=== PATIENT | male | born 1955 | race American Indian/Alaskan Native ===

== ENCOUNTER 2018-04-12 13:51 | Inpatient (IN) | payer BC, MEDICARE ==
[2018-04-12 13:58] VITALS: BMI 32.1
[2018-04-12] MEDS ORDERED: Sodium Chloride 0.9% 1,000 ML IV STA (14:28)
--- NOTE | 2018-04-12 14:33 | ED PDOC ---
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 04/12/18 14:35 Time/Duration: 1-3 hours Symptom Onset: Gradual Symptom Course: Improving Quality: Other (no pain) Activities at Onset: Other (walking) Context: Standing Past Medical History - Provider Review Nursing Documentation Reviewed: Yes - Travel History Have you recently traveled outside [place] w/in the past 3 mons?: No - Infectious Disease Hx of Infectious Diseases: None - Tetanus Immunization Tetanus Immunization: Unknown - Reproductive Currently Lactating: No - Cardiac Hx Cardiac Disorders: Yes Hx Hypertension: Yes - Neurological Hx Neurological Disorder: Yes Other/Comment: Nixon [place] Syndrome MAY 2013 POOR BALANCE PERIPHERAL NEUROPATHY - Endocrine/Metabolic Hx Endocrine Disorders: No - Hematological/Oncological Hx Blood Disorders: Yes Hx Anemia: Yes Hx Blood Transfusions: Yes Hx Blood Transfusion Reaction: No Hx Unexplained Bleeding: No - Integumentary Hx Dermatological Disorder: No Hx Melanoma: No - Genitourinary/Gynecological Hx Genitourinary Disorders: Yes Hx Prostate Problems: Yes Hx Urinary Tract Infection: Yes - Psychiatric Hx Psychophysiologic Disorder: No Hx Substance Use: No - Surgical History Hx Cholecystectomy: Yes Hx Orthopedic Surgery: Yes (LEFT KNEE X 3) Other/Comment: PLASMAPHORESIS/ FOR NIXON BARRE SYNDROM - Anesthesia Hx Anesthesia: Yes Hx Anesthesia Reactions: No Hx Malignant Hyperthermia: No - Suicidal Assessment Feels Threatened In Home Enviroment: No Family/Social History - Physician Review Nursing Documentation Reviewed: Yes Family/Social History: No Known Family HX Smoking Status: Never Smoked Hx Alcohol Use: Yes (BEER A DAY) Hx Substance Use: No Hx Substance Use Treatment: No Allergies/Home Meds Allergies/Adverse Reactions: Allergies hydromorphone Allergy (Verified 07/14/16 10:55) ANAPHYLAXIS Home Medications: Home Meds Medication Instructions Recorded Confirmed Azilsartan Med/Chlorthalidone 1 tab PO DAILY 04/07/18 04/10/18 [Edarbyclor 40 mg-25 mg] Review of Systems - Review of Systems Constitutional: Normal Eyes: Normal ENT: Normal Respiratory: SOB Cardiovascular: Normal Gastrointestinal: Normal Genitourinary Male: Normal Musculoskeletal: Normal Skin: Normal Neurological: Normal Endocrine: Normal Hemo/Lymphatic: Normal Psychiatric: Normal Physical Exam Vital Signs Reviewed: Yes Vital Signs Temp Pulse Resp BP Pulse Ox 04/12/18 13:58 97.9 F 90 19 117/75 100 Temperature: Afebrile Blood Pressure: Normal Pulse: Regular Appearance: Positive for: Well-Appearing, Non-Toxic, Comfortable Pain Distress: None Mental Status: Positive for: Alert and Oriented X 3 Finger Stick Blood Glucose: 101 - Systems Exam Head: Present: Atraumatic, Normocephalic Pupils: Present: PERRL Extroacular Muscles: Present: EOMI Conjunctiva: Present: Normal Ears: Present: Normal Mouth: Present: Moist Mucous Membranes Pharnyx: Present: Normal Nose (External): Present: Atraumatic Nose (Internal): Present: Normal Inspection Neck: Present: Normal Range of Motion Respiratory/Chest: Present: Clear to Auscultation, Good Air Exchange Cardiovascular: Present: Regular Rate and Rhythm Abdomen: No: Tenderness, Distention, Normal Bowel Sounds, Peritoneal Signs, Rebound, Guarding, McBurney's Point Tender, Rovsing's Sign Present, Hernias, Feeding Tubes, Ostomy Tubes, Mass/Organomegaly, Scars, Other Back: Present: Normal Inspection Upper Extremity: Present: Normal Inspection Lower Extremity: Present: Normal Inspection Neurological: Present: GCS=15, CN II-XII Intact, Speech Normal, Motor Func Grossly Intact Skin: Present: Warm, Normal Color Psychiatric: Present: Alert, Oriented x 3, Normal Insight, Normal Concentration Medical Decision Making ED Course and Treatment: you were treated in the ED today for hx of nixon barre, pulmonary embolism in the past with filter placed, had recently prostate biopsy and had been resting at home and then got up to go outside the home and felt a bit lightheaded and as if you were going to pass out and secondarily had a very transient difficulty breathing but all of which has resolved but otherwise without any loss of consciousness/neck pain/head injury/nausea/vomiting/headache/dizziness/ chest pain/abdomen pain/numbness/tingling/loss of limb function/pain with urination. Secondarily you had some mild blood clots with urination right after your biopsy but which has all been clear. You were otherwise breathing easily, smiling and talking easily, good strength/sensation, walking easily, clear lungs , no abdomen tenderness, no spinal tenderness, no fever temp 97.9, stable heart rate 90, stable breathing rate 19, excellent oxygen level 100% room air, stable blood pressure 117/75 which we recommend repeat in 2-3 days primary care office to determine further treatment, you have blood tests no infection count 6, stable blood level hemoglobin 11/platelets 124, stable chemistry, creatinine elevated 3.0 from prior 1.0, heart blood test negative less than 0.01, low risk of blood clot elevated 1299, urine test large LE, radiology chest xray initial no acute findings, nuclear medicine scan pending, ECG normal sinus rhythm, normal saline hydration, observation done in the ED, counselled to stop driving till first clinic visit. Chest X-ray Reviewed by radiologist, shows: No active disease. d/w Dr. Luna regarding patient with near syncope/dizziness/lightheadedness , and acute change in renal function from prior 3.0 from 1.0 and secondarily hx of PE with having had transient sob thus d-dimer ordered with 1299 and thus nuclear medicine VQ scan ordered which Dr. Luna will followup, recommends Dr. Martin nephrology consult and admit to remote telemetry for ivf hydration and ceftriaxone for largue leukocytes on ua. 04/12/18 18:08 Reassessment Condition: Improving,but remains with symptoms - Lab Interpretations Lab Results: 04/12/18 14:45 04/12/18 15:15 Lab Results 04/12/18 16:36: Urine Color Light red, Urine Appearance Slight-cloudy, Urine pH 6.0, Ur Specific [place] 1.020, Urine Protein 30 H, Urine Glucose (UA) Negative , Urine Ketones Negative, Urine Blood Large H, Urine Nitrate Negative, Urine Bilirubin Negative, Urine Urobilinogen 0.2, Ur Leukocyte Esterase Large H, Urine RBC 25 - 30, Urine WBC 20 - 25, Ur Epithelial Cells 0 - 2, Urine Bacteria Small 04/12/18 15:15: Sodium 133, Potassium 5.1 H, Chloride 106, Carbon Dioxide 21, Anion Gap 11, BUN 50 H, Creatinine 3.0 H, Est GFR ( Amer) 26, Est GFR ( Non-Af Amer) 21, Random Glucose 83, Calcium 8.4, Magnesium 1.1 L, Total Bilirubin 0.4, AST 22, ALT 11, Alkaline Phosphatase 70, Lactate Dehydrogenase 413, Total Creatine Kinase 32 L, Troponin I < 0.01 D, Total Protein 7.0, Albumin 3.4, Globulin 3.6, Albumin/Globulin Ratio 0.9 L 04/12/18 14:45: PT 13.9 H, INR 1.21, APTT 26.7, D-Dimer, Quantitative 1299 H 04/12/18 14:45: WBC 6.0, RBC 3.58, Hgb 11.5 L, Hct 37.2 L, MCV 103.9, MCH 32.1, MCHC 30.9 L, RDW 13.1, Plt Count 124, MPV 9.6, Gran % 74.2 H, Lymph % (Auto) 15.3 L, [place] % (Auto) 8.5 H, Eos % (Auto) 1.8, Baso % (Auto) 0.2, Gran # 4.48, Lymph # (Auto) 0.9 L, [place] # (Auto) 0.5, Eos # (Auto) 0.1, Baso # (Auto) 0.01 04/12/18 14:10: POC Glucose (mg/dL) 101 I have reviewed the lab results: Yes - RAD Interpretation Radiology Orders: 04/12/18 14:27 CHEST PORTABLE [RAD] Stat 04/12/18 16:39 LUNG PERF & VENT SCAN [NM] Stat Gas Appliance Servicer: ED Physician (cxr right hemidiaphram no acute) - Medication Orders Current Medication Orders: Sodium Chloride (Sodium Chloride 0.9%) 1,000 mls @ 100 mls/hr IV .Q10H SUNITA Discontinued Medications Sodium Chloride (Sodium Chloride 0.9%) 1,000 mls @ 999 mls/hr IV .Q1H1M STA Stop: 04/12/18 15:28 Last Admin: 04/12/18 14:44 Dose: 999 mls/hr eMAR Start Stop Document 04/12/18 14:44 GMI (Rec: 04/12/18 14:45 [email or web address]) Intravenous Solution Start Date 04/12/18 Start Time 14:44 End Date 04/12/18 End time 15:50 Total Infusion Time 66 Disposition/Present on Arrival - Present on Arrival Any Indicators Present on Arrival: Yes History of DVT/PE: Yes History of Uncontrolled Diabetes: No Urinary Catheter: No History of Decub. Ulcer: No History Surgical Site Infection Following: None - Disposition Have Diagnosis and Disposition been Completed?: Yes Diagnosis: Renal insufficiency Disposition: HOSPITALIZED Disposition Time: 18:08 Patient Plan: Admission, Telemetry Patient Problems: Current Active Problems Problem Status Onset Renal insufficiency Acute Condition: STABLE Referrals: Partha Luna MD [Primary Care Provider] - Follow up with primary Forms: [employer] ([place])
[2018-04-12 14:57] LABS: BASO # 0.01 K/mm3 (0.0-2.0); BASO % 0.2 % (0.0-3.0); EOS # 0.1 (0.0-0.7); EOS % 1.8 % (1.5-5.0); GRAN # 4.48 (1.4-6.5); GRAN % 74.2 % (50.0-68.0); HEMOGLOBIN 11.5 g/dL (14.0-18.0); LYMPH # 0.9 (1.2-3.4); LYMPH % 15.3 % (22.0-35.0); MEAN CELL VOLUME 103.9 fl (80.0-105.0); MEAN CORPUSCULAR HEMOGLOBIN 32.1 pg (25.0-35.0); MEAN CORPUSCULAR HGB CONC 30.9 g/dl (31.0-37.0); MEAN PLATELET VOLUME 9.6 fl (7.0-11.0); MONO # 0.5 (0.1-0.6); MONO % 8.5 % (1.0-6.0); RBC 3.58 10^6/uL (3.5-6.1); RED CELL DISTRIBUTION WIDTH 13.1 % (11.5-14.5)
--- NOTE | 2018-04-12 15:29 | RAD ---
Date of service: 04/12/2018 HISTORY: 62yoM, sob COMPARISON: 08/31/2015 FINDINGS: LUNGS: No active pulmonary disease. PLEURA: No significant pleural effusion identified, no pneumothorax apparent. CARDIOVASCULAR: Normal. OSSEOUS STRUCTURES: No significant abnormalities. VISUALIZED UPPER ABDOMEN: Normal. OTHER FINDINGS: None. IMPRESSION: No active disease.
[2018-04-12 15:44] LABS: ALB/GLOB RATIO 0.9 (1.1-1.8); ALBUMIN 3.4 g/dL (3.0-4.8); ALT/SGPT 11 U/L (7-56); AST/SGOT 22 U/L (17-59); BLOOD UREA NITROGEN 50 mg/dL (7-21); CALCIUM 8.4 mg/dL (8.4-10.5); GFR NON-AFRICAN AMERICAN 21
[2018-04-12 15:54] LABS: TROPONIN I < 0.01 ng/mL
[2018-04-12 16:34] LABS: INR 1.21; PARTIAL THROMBOPLASTIN TIME 26.7 Seconds (25.1-36.5); PROTHROMBIN TIME 13.9 SECONDS (9.4-12.5)
[2018-04-12 17:04] LABS: URINE BILIRUBIN NEGATIVE (NEGATIVE); URINE BLOOD LARGE (NEGATIVE); URINE GLUCOSE (UA) NEGATIVE (NEGATIVE); URINE LEUKOCYTE ESTERASE LARGE Leu/uL (NEGATIVE); URINE PROTEIN 30 mg/dL (<30 mg/dL); URINE UROBILINOGEN 0.2 E.U./dL (<1 E.U./dL)
[2018-04-12 17:06] LABS: URINE APPEARANCE SLIGHT-CLOUDY (CLEAR); URINE COLOR LIGHT RED (YELLOW)
[2018-04-12 17:18] LABS: URINE BACTERIA SMALL (NEG); URINE EPITHELIAL CELLS 0 - 2 /hpf (0-5); URINE RBC 25 - 30 /hpf (0-2); URINE WBC 20 - 25 /hpf (0-6)
[2018-04-12] MEDS ORDERED: cefTRIAXone 1 gm 1 GM/100 ML BAG IVPB STA (18:09)
[2018-04-12] MEDS: Sodium Chloride 0.9% 1,000 ML IV SCH (18:26)
[2018-04-12] MEDS ORDERED: Magnesium Sulfate 1 gm in D5W 1 GM/100 ML BAG IVPB ONE (20:16)
[2018-04-12] MEDS ORDERED: Pneumococcal 23-Valent Vaccine IM ONE (23:32)
[2018-04-13] MEDS: Oxycodone/Acetaminophen 5/325 mg Tab PO PRN ×3 (11:33→22:49)
[2018-04-13] MEDS: Sodium Chloride 0.9% 1,000 ML IV SCH ×2 (11:34→22:34)
[2018-04-13 11:43] LABS: ALB/GLOB RATIO 0.8 (1.1-1.8); ALBUMIN 2.6 g/dL (3.0-4.8); CALCIUM 7.7 mg/dL (8.4-10.5)
--- NOTE | 2018-04-13 12:14 | CARD ---
APPROVED REPORT Date of service: 04/12/2018 EKG Measurement Heart [id number] <Conclusion> Normal sinus rhythm Rightward axis Borderline ECG
--- NOTE | 2018-04-13 15:26 | CT ---
Date of service: 04/13/2018 PROCEDURE: CT HEAD WITHOUT CONTRAST. HISTORY: dizziness COMPARISON: 08/30/2015 TECHNIQUE: Axial computed tomography images were obtained through the head/brain without intravenous contrast. Radiation dose: Total exam DLP = 937 mGy-cm. This CT exam was performed using one or more of the following dose reduction techniques: Automated exposure control, adjustment of the mA and/or kV according to patient size, and/or use of iterative reconstruction technique. FINDINGS: HEMORRHAGE: No intracranial hemorrhage. BRAIN: No mass effect or edema. Chronic microvascular changes are seen in the periventricular white matter. No acute findings VENTRICLES: Unremarkable. No hydrocephalus. CALVARIUM: Unremarkable. PARANASAL SINUSES: Unremarkable as visualized. No significant inflammatory changes. MASTOID AIR CELLS: Unremarkable as visualized. No inflammatory changes. OTHER FINDINGS: None. IMPRESSION: No acute finding
[2018-04-13] MEDS ORDERED: Magnesium Sulfate 2 gm/50 ml 2 GM/50 ML BAG IVPB ONE (15:51)
--- NOTE | 2018-04-13 17:50 | HP ---
HISTORY OF PRESENT ILLNESS: A 62-year-old black male with history of hypertension, recent prostate biopsy, history of gangrene in the past, history of gouty arthritis, history of DVT and PE in the past. The patient recently had a prostate biopsy for arising PSA. He did well, post biopsy he did have some hematuria; however, it was minimal. The patient eventually had a syncopal episode with diaphoresis without chest pain at home. He was brought to the emergency room and was admitted, did have an elevated BUN and creatinine at 15 and 3, also was found to have an elevated D-dimer in the face of renal insufficiency. Because of the BUN and creatinine, the patient did not have a CT angiogram. He did have a ventilation/perfusion scan, which is pending. The patient denies any shortness of breath, nausea, vomiting, palpitations. Did have diaphoresis and severe weakness. Did not have a near syncopal episode x2. There is no have a history of CAD in past, also history of hypertension in the past. MEDICATIONS: The patient has been taking an NELIA with a diuretic. PHYSICAL EXAMINATION: GENERAL: Shows a well-developed, well-nourished black male in no apparent distress in the following morning. HEENT: Essentially within normal limits. HEART: Regular sinus rhythm. There was no S3, S4. No murmurs. CHEST: Clear to auscultation and percussion. ABDOMEN: Mildly obese, but benign. EXTREMITIES: Without cyanosis, clubbing, or edema. NECK: Carotids are without bruits. NEUROLOGIC: Grossly intact. Question is passing large amounts of bloody urine still with clots. IMPRESSION: Obstructive uropathy, hematuria, postoperative hematuria, syncopal episode, rule out coronary artery disease, history of positive D-dimer, history of pulmonary embolism in the past, hypertension, hyperkalemia. Partha Luna MD
--- NOTE | 2018-04-13 19:37 | CP.PCM.CON ---
Past Patient History - Infectious Disease Hx of Infectious Diseases: None - Tetanus Immunizations Tetanus Immunization: Unknown - Past Medical History & Family History Past Medical History?: Yes - Past Social History Smoking Status: Never Smoked - CARDIAC Hx Cardiac Disorders: Yes Hx Hypertension: Yes - PULMONARY Hx Respiratory Disorders: Yes (PULMONARY EMBOLISM WITH FILETER PLACED) - NEUROLOGICAL Hx Neurological Disorder: Yes Other/Comment: [place] Syndrome MAY 2013 POOR BALANCE PERIPHERAL NEUROPATHY - ENDOCRINE/METABOLIC Hx Endocrine Disorders: No - HEMATOLOGICAL/ONCOLOGICAL Hx Blood Disorders: Yes Hx Anemia: Yes Hx Unexplained Bleeding: No - INTEGUMENTARY Hx Dermatological Problems: No Hx Melanoma: No - MUSCULOSKELETAL/RHEUMATOLOGICAL Hx Musculoskeletal Disorders: Yes (SPINAL SURGERY,3 LEFT KNEE SX.) Hx Falls: Yes Hx Unsteady Gait: Yes (CANE) - GASTROINTESTINAL Hx Gastrointestinal Disorders: Yes Hx Gall Bladder Disease: Yes (CHOLECYSTECTOMY) - GENITOURINARY/GYNECOLOGICAL Hx Genitourinary Disorders: Yes Hx Prostate Problems: Yes Hx Urinary Tract Infection: Yes - PSYCHIATRIC Hx Psychophysiologic Disorder: No Hx Substance Use: No - SURGICAL HISTORY Hx Surgeries: Yes Hx Cholecystectomy: Yes Hx Orthopedic Surgery: Yes (LEFT KNEE X 3) Other/Comment: PLASMAPHORESIS/ FOR [place] BARRE SYNDROM - ANESTHESIA Hx Anesthesia: Yes Hx Anesthesia Reactions: No Hx Malignant Hyperthermia: No Meds Allergies/Adverse Reactions: Allergies Allergy/AdvReac Type Severity Reaction Status Date / Time hydromorphone Allergy ANAPHYLAXIS Verified 04/12/18 21:02 - Medications Medications: Current Medications Amlodipine Besylate (Norvasc) 2.5 mg PO DAILY [facility] Last Admin: 04/13/18 10:51 Dose: 2.5 mg Aspirin (Aspirin Chewable) 81 mg PO DAILY [facility] Heparin Sodium (Porcine) (Heparin) 5,000 units SC Q8 [facility] PRN Reason: Protocol Last Admin: 04/13/18 17:11 Dose: 5,000 units Sodium Chloride (Sodium Chloride 0.9%) 1,000 mls @ 100 mls/hr IV .Q10H [facility] Last Admin: 04/13/18 11:34 Dose: 100 mls/hr Oxycodone/Acetaminophen (Percocet 5/325 Mg Tab) 1 tab PO Q6H PRN PRN Reason: Pain, moderate (4-7) Stop: 04/16/18 11:09 Last Admin: 04/13/18 17:11 Dose: 1 tab Tamsulosin HCl (Flomax) 0.4 mg PO BID SUNITA Last Admin: 04/13/18 17:12 Dose: 0.4 mg Results - Vital Signs Recent Vital Signs: Last Vital Signs Temp 97.7 F 04/13/18 17:38 Pulse 74 04/13/18 18:00 Resp 18 04/13/18 17:38 BP 140/96 H 04/13/18 17:38 Pulse Ox 99 04/13/18 17:38 - Labs Result Diagrams: 04/12/18 14:45 04/13/18 11:20 Labs: Laboratory Results - last 24 hr 04/13/18 11:20 Sodium 136 Potassium 4.3 Chloride 110 H Carbon Dioxide 19 L Anion Gap 11 BUN 40 H Creatinine 2.3 H Est GFR ( Amer) 35 Est GFR (Non-Af Amer) 29 Random Glucose 82 Calcium 7.7 L Phosphorus 3.1 Magnesium 1.3 L Total Bilirubin 0.2 AST 21 ALT 16 Alkaline Phosphatase 57 NT-Pro-B Natriuret Pep 779 H Total Protein 5.9 Albumin 2.6 L Globulin 3.3 Albumin/Globulin Ratio 0.8 L Vitamin B12 241 Assessment & Plan - Assessment and Plan (Free Text) Assessment: Urology consultation full note to be dictated YS - Date & Time Date: 04/13/18 Time: 19:37
--- NOTE | 2018-04-13 23:10 | CON ---
DATE: 04/13/2018 CARDIOLOGY CONSULT REASON FOR CONSULTATION: Dizziness and near syncope. HISTORY OF PRESENT ILLNESS: The patient is 62 years old male who has a history of Guillain-Clatonia syndrome diagnosed in 2013, was treated and during this hospitalization course patient was diagnosed with left femoral DVT as well as pulmonary embolism and underwent IVC filter placement. The patient was left with peripheral neuropathy and imbalance gait. He presented because of dizziness. The patient described that he went to store that is two blocks away from his house for grocery and after he reached the store he felt lightheaded and described what he felt like flashing light in front of his eyes. He went to the car. After he think he felt better went home, driving only two blocks and at home he had the same symptoms recurred again. The patient denies any fainting or fall. The patient did not experience palpitation, but he did report sweating. SOCIAL HISTORY: Patient is nonsmoker. He is an alcohol abuser. MEDICATIONS: Patient is currently on amlodipine 2.5 mg once a day, Percocet one tablet every 6 hours, normal saline 100 mL an hour. Patient did receive IV Rocephin yesterday 1 g. REVIEW OF SYSTEMS: No nausea or vomiting. No fever or chills. The patient has poor feeling in all extremities, which he attributed to peripheral neuropathy and has unsteady gait, sometimes he has to use a supportive walking cane. PHYSICAL EXAMINATION: GENERAL: The patient is a middle-aged male who does not appear to be in acute distress. VITAL SIGNS: Blood pressure 141/82, heart rate 52, temperature 98, and the most recent blood pressure was 141/99. HEENT: Normocephalic. CHEST: Clear. HEART: S1 and S2, regular. ABDOMEN: Soft. EXTREMITIES: No edema. LABORATORY DATA: Hemoglobin and hematocrit 11.5 and 37.2. White count and platelet count are within normal limits. Today's SMA-7: Sodium 136, potassium 4.3, chloride 110, CO2 19, glucose 82, BUN 40, creatinine 2.3. D-dimer is 1299. INR is 1.21. EKG revealed sinus rhythm at the rate of 75, rightward axis. ASSESSMENT: 1. Dizziness. 2. Mild sinus bradycardia, noted after admission. 3. History of left femoral vein deep venous thrombosis and pulmonary embolism in 2016. 4. History of Guillain-Clatonia syndrome. 5. History of recent prostatic biopsy done last week. The patient does not have the results of that biopsy yet. RECOMMENDATIONS: Continue Norvasc 2.5 mg once a day, normal saline at 100 mL/hour. Patient will be evaluated by the central office equipment installer, Dr. Martin as well as urologist, Dr. Shell and I recommend Neurology evaluation. In the meantime, the patient underwent ventilation/perfusion scan, its reports are still pending. I will obtain venous Doppler of lower extremity, head CT scan without contrast, echocardiographic study and start subcutaneous heparin at 5000 units every 8 hours. Rory Ruano MD
--- NOTE | 2018-04-14 08:03 | NM ---
EXAM: NM Lung Perfusion and Ventilation Scan CLINICAL HISTORY: 62 years old, male; Signs and symptoms; Other: Dizziness; Additional info: 62yom with HX of pe, SOB now. Please eval pe. TECHNIQUE: Nuclear Medicine ventilation and perfusion images of the lungs were obtained in multiple projections following radiopharmaceutical inhalation followed by injection of Tc99m MAA. Patient received 30.0 mCi of technetium 99 DTPA by inhalations and 4.0 mCi of technetium 99m MAA particles intravenously. COMPARISON: SD - CHEST PORTABLE 04/12/2018 2:32 PM FINDINGS: Ventilation: Small non-segmental ventilation defect in left apex without perfusion abnormalities likely from emphysematous changes. Perfusion: No perfusion defects. IMPRESSION: No findings to suggest pulmonary embolism.
[2018-04-14] MEDS: Sodium Chloride 0.9% 1,000 ML IV SCH (09:08)
--- NOTE | 2018-04-14 10:08 | US ---
Date of service: 04/14/2018 PROCEDURE: Ultrasound of the Kidneys HISTORY: [facility] COMPARISON: None available. TECHNIQUE: Sonogram of the kidneys. FINDINGS: RIGHT KIDNEY: Measures: 9.2 cm. Normal in size, contour and echogenicity. No stone, solid mass lesion or hydronephrosis visualized. There is a 1.5 X 1.3 X 1.4 CM cyst in the interpolar region. LEFT KIDNEY: Measures: 11.1 cm. Normal in size, contour and echogenicity. There is moderate hydronephrosis. No stone or solid mass lesion visualized. OTHER FINDINGS: None. IMPRESSION: Moderate left hydronephrosis.
--- NOTE | 2018-04-14 11:36 | PN ---
DATE: 04/14/2018 A 62-year-old black male admitted to the hospital with hematuria, bacteruria, elevated BUN and creatinine and a near syncopal episode, status post prostate biopsy. The patient passed a large amount of blood and clots in his urine. He is on IV antibiotics. He was seen in consultation by Dr. Shell, he is being hydrated. He has no further difficulty urinating. He has no fever. Vital signs are stable. We are awaiting a renal ultrasound because of elevated BUN and creatinine. If renal is improved and his BUN and creatinine improve, he most likely will be discharged home in the morning to follow up with Dr. Shell as an outpatient. Physical examination is unchanged. Partha Luna MD [facility] # [id number]
[2018-04-14] MEDS: cefTRIAXone 1 gm 1 GM/100 ML BAG IVPB SCH (11:45)
[2018-04-14] MEDS: Oxycodone/Acetaminophen 5/325 mg Tab PO PRN ×3 (11:51→23:38)
--- NOTE | 2018-04-14 12:14 | US ---
HISTORY: Leg pain and swelling. Evaluate for DVT PHYSICIAN(S): Jasson Hogan MD. TECHNIQUE: Duplex sonography and color-flow Doppler with graded compression were used to evaluate the deep venous systems of both lower extremities. FINDINGS: The visualized deep venous systems of both lower extremities are sonographically normal and compressible. Normal wave forms and augmentation are seen. There is no sonographic evidence for deep venous thrombosis in the visualized segments of both lower extremities. IMPRESSION: No sonographic evidence for deep venous thrombosis in the visualized segments of both lower extremities.
[2018-04-14] MEDS ORDERED: Iohexol 350 MG/100 ML VIAL ONE (18:24)
--- NOTE | 2018-04-14 20:11 | CARD ---
APPROVED REPORT Date of service: 04/14/2018 EXAM: Two-dimensional and M-mode echocardiogram with Doppler and color Doppler. INDICATION Dizziness and Vertigo 2D DIMENSIONS Left Atrium (2D)4.0 (1.6-4.0cm)IVSd1.3 (0.7-1.1cm) LVDd4.5 (3.9-5.9cm)PWd1.4 (0.7-1.1cm) LVDs3.0 (2.5-4.0cm)FS (%) 34.8 % LVEF (%)64.1 (>50%) M-Mode DIMENSIONS Aortic Root3.60 (2.2-3.7cm)Aortic Cusp Exc.2.20 (1.5-2.0cm) Aortic Valve AoV Peak Qxwedwsa523.0cm/sAoV VTI25.1cmAO Peak GR.9mmHg LVOT Peak Ymzoeaqy830.0cm/sLVOT VTI25.20cmAO Mean GR.5mmHg Mitral Valve MV E Luhbkakh92.3cm/sMV A Moijjqlv60.5cm/sE/A ratio0.5 TDI Lateral E' Peak V6.24cm/sMedial E' Peak V6.43cm/sE/Lateral E'7.4 E/Medial E'7.2 Pulmonary Valve PV Peak Zwlhtzsz542.0cm/sPV Peak Grad.4mmHg Tricuspid Valve TR Peak Kyaswegd221zb/sRAP BPHBZZWW68ceVuLI Peak Gr.23mmHg [id number] LEFT VENTRICLE The left ventricle is normal size. There is borderline concentric left ventricular hypertrophy. The left ventricular function is normal. The left ventricular ejection fraction is within the normal range. There is normal LV segmental wall motion. Transmitral Doppler flow pattern is Grade I-abnormal relaxation pattern. RIGHT VENTRICLE The right ventricle is normal size. There is normal right ventricular wall thickness. The right ventricular systolic function is normal. ATRIA The left atrium size is normal. The right atrium size is normal. AORTIC VALVE The aortic valve is mildly to moderately sclerotic. No aortic regurgitation is present. There is no aortic valvular stenosis. MITRAL VALVE The mitral valve is mildly thickened. There is no mitral valve regurgitation noted. There is no mitral valve stenosis. TRICUSPID VALVE The tricuspid valve is normal in structure. There is trace tricuspid regurgitation. GREAT VESSELS The aortic root displays moderate sclerocalcific changes of the aortic root. The IVC is normal in size and collapses >50% with inspiration. PERICARDIAL EFFUSION There is no pericardial effusion. <Conclusion> The left ventricle is normal size. There is borderline concentric left ventricular hypertrophy. The left ventricular function is normal. The left ventricular ejection fraction is within the normal range. There is normal LV segmental wall motion. Transmitral Doppler flow pattern is Grade I-abnormal relaxation pattern. The aortic valve is mildly to moderately sclerotic. The aortic root displays moderate sclerocalcific changes
--- NOTE | 2018-04-14 21:22 | PN ---
DATE: 04/14/2018 REASON FOR THE CONSULTATION AND FOLLOWUP: Cardiac evaluation, near syncope, dizziness. SUBJECTIVE: The patient denies any chest pain, shortness of breath, or any palpitation. Coming back from echo. PHYSICAL EXAMINATION: VITAL SIGNS: As follows: Temperature afebrile, heart rate 85, blood pressure 157/106. HEENT: PERRLA. Extraocular muscles intact. NECK: Supple. No carotid bruits or thyromegaly. CHEST: Clear to auscultation. HEART: S1 and S2 regular. ABDOMEN: Soft. EXTREMITIES: Clubbing and cyanosis negative. LABORATORY DATA: Blood workup as follows; WBC 6, hemoglobin 11.5, hematocrit 37.2, platelet count 124. Chemistry shows sodium 130, potassium 4.2, chloride 110, carbon dioxide 19, anion gap of 11, BUN 40, creatinine 2.3. IMPRESSION: A 62-year-old male with past medical history significant for Guillain-[place] syndrome, hypertension, history of deep venous thrombosis, pulmonary embolism in 2013, admitted with near syncope, dizziness, history of recent prostate biopsy, morbid obesity, renal insufficiency, chronicity unknown, possibly [id number]. RECOMMENDATIONS: We will get echo, check orthostatic hypotension, avoid nephrotoxic medications for risk stratification, suggest stress test as outpatient. Arrangement has been made to do a stress test as an outpatient in two weeks. We will get echo today and review when the echo is done. If remains stable, we will also check orthostatic hypotension. The patient will be okay to discharge by possibly tomorrow. We will give 7.5 mg of Norvasc, admitting the patient was a little bradycardic as well, so we will avoid high-dose of beta-shivani, but we will start 25 p.o. b.i.d. and give Norvasc 10 mg from tomorrow and put hydralazine 25 b.i.d. We will also check orthostatic, lipid profile, TSH, hemoglobin A1c. Further recommendation is depending upon hospital course and finding of initial workup. We will follow with you. Arrangement has been made for outpatient stress test in two weeks. We will also increase Norvasc to 10 mg from tomorrow. We will check echo once it is available. Thank you, Dr. Luna, for providing us the opportunity in taking care of the patient, Curly Proctor. Javon Ortega MD [facility] # [id number]
--- NOTE | 2018-04-14 23:11 | CON ---
DATE: 04/14/2018 REASON FOR CONSULTATION: Acute kidney injury, hyperkalemia, hyponatremia. HISTORY OF PRESENT ILLNESS: A 62-year-old male previously unknown to me, was brought to the emergency room on 04/12 because of complaints of lightheadedness, dizziness. The patient reports he had a prostate biopsy on 04/10. The patient had some hematuria post biopsy. He felt okay. On Saturday morning, he went to the [facility]. He felt a little lightheaded and dizzy. Half an hour later, he continued to feel dizzy. He felt like he was going to pass out. Therefore, he was brought to the emergency room by his daughter. In the emergency room, he was found to be relatively hypotensive. Initial blood pressure was 117/75. He was found to be afebrile. His laboratory data showed a sodium of 133, potassium of 5.1 and a creatinine of 3. The patient has no history of chronic kidney disease. He gives a history of recent elevation in PSA, which prompted for the prostate biopsy. He gives a history of Guillain-[place] syndrome in 2013. At that time, he reports he had plasmapheresis, blood transfusions, bone marrow biopsy. He also gives a history of surgery on his left knee x3. As per the PMD's history, he has a history of DVT and PE in the past and a history of gouty arthritis. He gives a history of GI bleed with gastric ulcer, laminectomy of L3 and L4. FAMILY HISTORY: Noncontributory. SOCIAL HISTORY: No smoking, no alcohol use, no IV drug abuse. ALLERGIES: HYDROMORPHONE. MEDICATIONS: The patient reports that he was not taking any medications at home. REVIEW OF SYSTEMS: All systems are reviewed, pertinent positives as mentioned in history of presenting illness, rest unremarkable. PHYSICAL EXAMINATION: GENERAL: Obese elderly male lying in bed. VITAL SIGNS: Blood pressure 156/107, heart rate 80, respiratory rate 20, temperature 98.9. HEENT: Normocephalic, atraumatic, positive pallor. NECK: Supple, no JVD. LUNGS: Bilateral equal entry, bilateral equal expansion. CARDIAC: S1 and S2, regular rate and rhythm, no murmur, no rub. ABDOMEN: Soft, nondistended, nontender, bowel sounds present. EXTREMITIES: No lower extremity edema. INTAKE AND OUTPUT: 2900/670. LABORATORY DATA: WBC 6, hemoglobin 11.5, hematocrit 37, platelets 124. Sodium 136, potassium 4.3, chloride 110, CO2 19, BUN 40, creatinine 2.3, glucose 82, calcium 7.7, phosphorus 3.1, magnesium 1.3, albumin 2.6. Urine; light red, slightly cloudy, pH 6, specific gravity 1.020, protein 30, blood large, leukocyte esterase large. Urine culture, no growth. V/Q scan, low probability for PE. Lower extremity ultrasound, no DVT. Echocardiogram; normal left ventricular size, borderline concentric left ventricular hypertrophy, normal left ventricular function, EF normal, aortic valve mildly sclerotic, aortic root displays moderate sclerotic changes. Renal ultrasound; right kidney 9.2 cm, left kidney 11.1 cm, moderate hydronephrosis. CURRENT MEDICATIONS: Apresoline 25 b.i.d., aspirin 81, Flomax 0.4 b.i.d., Lopressor 25 b.i.d., amlodipine 10, Percocet, Rocephin 1 g daily. ASSESSMENT: 1. Acute kidney injury, in the setting of orthostatic symptoms, presyncope. 2. Recent prostate biopsy. 3. Left hydronephrosis, likely new. 4. Uncontrolled hypertension, no history of hypertension in the past? 5. Hypocalcemia. 6. Hypomagnesemia. 7. Resolved hyperkalemia. 8. History of deep venous thrombosis and pulmonary embolism in the past. 9. History of Guillain-[place] syndrome in the past. PLAN: 1. Bladder scan to ensure adequate emptying of the bladder. 2. Replace magnesium. 3. Labs in a.m. 4. Avoid nephrotoxins. 5. Urology evaluation. Thank you for the courtesy of this consultation. We will follow this patient closely with you. Danielle Martin MD
[2018-04-15 01:58] VITALS: O2SAT 99
[2018-04-15 06:53] LABS: ALB/GLOB RATIO 0.8 (1.1-1.8); ALBUMIN 2.7 g/dL (3.0-4.8); ALT/SGPT 9 U/L (7-56); AST/SGOT 21 U/L (17-59); BLOOD UREA NITROGEN 29 mg/dL (7-21); CALCIUM 8.5 mg/dL (8.4-10.5); GFR NON-AFRICAN AMERICAN 31; HDL CHOLESTEROL 31 mg/dL (29-60); URIC ACID 9.7 mg/dL (3.5-8.5)
[2018-04-15 07:00] LABS: BASO # 0.02 K/mm3 (0.0-2.0); BASO % 0.4 % (0.0-3.0); EOS # 0.2 (0.0-0.7); EOS % 3.8 % (1.5-5.0); GRAN # 2.47 (1.4-6.5); GRAN % 55.3 % (50.0-68.0); HEMOGLOBIN 10.2 g/dL (14.0-18.0); LYMPH # 1.1 (1.2-3.4); LYMPH % 23.9 % (22.0-35.0); MEAN CELL VOLUME 103.2 fl (80.0-105.0); MEAN CORPUSCULAR HEMOGLOBIN 32.4 pg (25.0-35.0); MEAN CORPUSCULAR HGB CONC 31.4 g/dl (31.0-37.0); MEAN PLATELET VOLUME 9.4 fl (7.0-11.0); MONO # 0.7 (0.1-0.6); MONO % 16.6 % (1.0-6.0); RBC 3.15 10^6/uL (3.5-6.1); RED CELL DISTRIBUTION WIDTH 13.2 % (11.5-14.5); WHITE BLOOD COUNT 4.5 10^3/ul (4.5-11.0)
[2018-04-15 07:02] LABS: LDL CHOLESTEROL 39 mg/dL (0-129)
--- NOTE | 2018-04-15 08:17 | CP.PCM.PN ---
Subjective - Date & Time of Evaluation Date of Evaluation: 04/15/18 Time of Evaluation: 06:45 - Subjective Subjective: Awake, alert, no distress Reason for consultation and follow up: Cardiac evaluation of near syncope and dizziness Seen and examined by me and Dr. Ortega Objective - Vital Signs/Intake and Output Vital Signs (last 24 hours): Temp Pulse Resp BP Pulse Ox 97.8 F 61 20 127/89 99 04/15/18 06:00 04/15/18 06:00 04/15/18 06:00 04/15/18 06:00 04/15/18 06:00 Intake and Output: 04/15/18 04/15/18 06:59 18:59 Intake Total 480 Output Total 1400 Balance -920 - Medications Medications: Current Medications Amlodipine Besylate (Norvasc) 10 mg PO DAILY [facility] Aspirin (Aspirin Chewable) 81 mg PO DAILY [facility] Last Admin: 04/14/18 11:44 Dose: 81 mg Heparin Sodium (Porcine) (Heparin) 5,000 units SC Q8 [facility] PRN Reason: Protocol Last Admin: 04/15/18 06:14 Dose: 5,000 units Hydralazine HCl (Apresoline) 25 mg PO BID [facility] Last Admin: 04/14/18 17:49 Dose: 25 mg Hydralazine HCl (Apresoline) 10 mg PO QID PRN PRN Reason: for SBP>170 Ceftriaxone Sodium (Rocephin 1 Gram Ivpb) 1 gm in 100 mls @ 100 mls/hr IVPB DAILY [facility] PRN Reason: Protocol Last Admin: 04/14/18 11:45 Dose: 100 mls/hr Metoprolol Tartrate (Lopressor) 25 mg PO BID [facility] Last Admin: 04/14/18 17:48 Dose: 25 mg Oxycodone/Acetaminophen (Percocet 5/325 Mg Tab) 1 tab PO Q6H PRN PRN Reason: Pain, moderate (4-7) Stop: 04/16/18 11:09 Last Admin: 04/14/18 23:38 Dose: 1 tab Tamsulosin HCl (Flomax) 0.4 mg PO BID [facility] Last Admin: 04/14/18 17:49 Dose: 0.4 mg - Labs Labs: 04/15/18 05:30 04/15/18 05:30 PT 13.9 SECONDS (9.4-12.5) H 04/12/18 14:45 INR 1.21 04/12/18 14:45 APTT 22.4 Seconds (25.1-36.5) L 04/14/18 05:30 - Constitutional Appears: No Acute Distress - Eye Exam Eye Exam: Normal appearance - ENT Exam ENT Exam: Mucous Membranes Moist - Respiratory Exam Respiratory Exam: Decreased Breath Sounds, NORMAL BREATHING PATTERN - Cardiovascular Exam Cardiovascular Exam: REGULAR RHYTHM, +S1, +S2 - GI/Abdominal Exam GI & Abdominal Exam: Soft, Normal Bowel Sounds - Extremities Exam Additional comments: trace edema - Neurological Exam Neurological Exam: Alert, Awake, Oriented x3 - Psychiatric Exam Psychiatric exam: Normal Affect - Skin Skin Exam: Dry, Intact, Warm Assessment and Plan - Assessment and Plan (Free Text) Assessment: A 62 year old male who came in to the ER due to syncopal episode at home. History of hypertension, Guillain- [place] Syndrome, history of DVT, pulmonary embolism in 2013, elevated PSA with recent prostate biopsy, renal insufficiency. Plan: ECHO done yesterday- Normal LV size, LVEF 64% Moderate sclerotic aortic valve Orthostatic vital signs pending Out patient Stress test Stable heart rate and blood pressure Renal on consult Continue current treatment Continue current medications Will follow up Plan and treatment discussed with Dr. Ortega
[2018-04-15] MEDS: cefTRIAXone 1 gm 1 GM/100 ML BAG IVPB SCH (09:55)
[2018-04-15] MEDS: Oxycodone/Acetaminophen 5/325 mg Tab PO PRN (10:09)
[2018-04-15 12:02] VITALS: BP 130/88; PULSE 77; RESP 18; TEMP 98.8
--- NOTE | 2018-04-15 14:19 | PN ---
DATE: 04/15/2018 SUBJECTIVE: The patient is currently seen getting dressed. He is prepared to leave today. The patient's BUN and creatinine have fallen closer to his baseline levels with IV fluid hydration. He is no longer orthostatic and he is no longer syncopal. His BUN is down to 29 with a creatinine of 2.2. The patient does have moderate left-sided hydronephrosis. This has been evaluated by Dr. Shell. He is status post a recent prostate biopsy, results of this study is pending. MEDICATIONS: Medication list reviewed. The patient is currently on hydralazine, aspirin, Flomax, heparin, Lopressor, Norvasc, Percocet and he was on Rocephin. OBJECTIVE: INTAKE/OUTPUT: Intake 580, output 1400. VITAL SIGNS: Blood pressure 130/88, temperature 98.8, respiratory rate is 18 with a pulse of 77. HEENT: Shows him to be normocephalic, atraumatic. Conjunctivae are pale. Sclerae are nonicteric. NECK: Supple. No neck vein distention. CHEST: Clear to auscultation and percussion. No rales, rhonchi or wheezing. CARDIOVASCULAR: Shows a regular rate and rhythm without murmurs, rubs or gallops. ABDOMEN: Soft. Bowel sounds normal. No rebound, guarding or masses. EXTREMITIES: No lower extremity cyanosis, clubbing or edema. LABORATORY DATA AND IMAGING: CBC: White blood cell count today is 4.5 with a hemoglobin down to 10.2, platelet count is 168,000. Chemistries show a sodium of 134, potassium down to 3.9, chloride 108 with a CO2 of 20, BUN is 29 with a creatinine of 2.2. His BUN baseline is in the low 20 range. He did have a creatinine baseline two days ago in the low one range. Uric acid level is 9.7. Hemoglobin A1c 5.3%. Calcium 8.5 with a phosphorus of 3.7. Magnesium level is borderline low at 1.5. Albumin level is 2.7. Microbiology, urine cultures are negative. Imaging: Renal ultrasound, eft kidney moderate hydronephrosis, right kidney normal. ASSESSMENT: 1. Acute renal failure, perhaps superimposed on chronic kidney disease stage II/III. It is unclear what his recent baseline creatinine is. The patient apparently was volume depleted orthostatic and he had a presyncopal episode. Of note, the patient also has what appears to be a new left-sided moderate hydronephrosis. This is being evaluated by Dr. Shell and the patient will follow up in the outpatient setting for this issue. 2. Hypertension. Blood pressure is controlled presently. The patient continues calcium channel shivani therapy and beta-shivani therapy. 3. Status post mild hypocalcemia, this has resolved. 4. Mild hypomagnesemia. Magnesium level is presently up to 1.5 post supplements. 5. Status post recent prostate biopsy for an elevated prostate surface antigen level, results of this are pending at the time of this dictation. 6. Past history of deep venous thrombosis and pulmonary embolism. 7. History of Guillain-[place] syndrome in the past. PLAN: 1. The patient reassured that his BUN and creatinine are trending back to his normal baseline. 2. The patient will follow up with Dr. Shell, likely early to mid next week to discuss the hydronephrosis and his prostate biopsy results. 3. Encouraged the patient to stay well hydrated. 4. The patient will remain on present blood pressure medication upon discharge. 5. Follow up with Renal on an outpatient setting only if his BUN and creatinine remain elevated. Rashard Salgado MD
--- NOTE | 2018-04-15 15:24 | PN ---
DATE: 04/15/2018 This note is an addendum to the initial dictated by our nurse practitioner. SUBJECTIVE: The patient came in with near syncope, history of Guillain-[place] syndrome, hypertension. So far, no evidence of acute [place]. Discussed with Dr. Luna. Echo was done yesterday. Normal sinus, ejection fraction 64%, moderate aortic sclerosis. Possible discharge home and for risk stratification, we scheduled a stress test in 2 weeks. Before he goes, we will also check the orthostatic. Javon Ortega MD
--- NOTE | 2018-04-15 17:50 | DS ---
HOSPITAL COURSE: A 62-year-old black male admitted to the hospital with urinary retention, syncopal episode, found to have renal insufficiency, hematuria gross, obstructive uropathy, also left hydronephrosis. Patient was seen in consultation with Dr. Shell. Patient also seen in consultation with Dr. Ortega and Dr. Martin. Patient's BUN and creatinine had decreased down to 29 and 2.2 from as high as 47 and 3. Patient is afebrile. He is on IV antibiotics . He is status post prostate biopsy and was treated with antibiotics for possible urosepsis. Patient then did well. He had no further episodes of syncope. His enzymes were negative. He will do an outpatient stress test. He will also have an outpatient followup on his obstructive uropathy and his hydronephrosis. He will follow up with Dr. Shell for the above and his prostate biopsy. We will continue to control his blood pressure without ACEs or ARBs. He will be on amlodipine and metoprolol in place. He will stay on a salt-free diet and he will be followed in approximately 5 days for a lab followup on his renal insufficiency. Patient is discharged home in improved condition. He is on a 2 g sodium diet. FINAL DISCHARGE DIAGNOSES: Acute renal failure, near syncope, benign prostatic hypertrophy, left hydronephrosis, hematuria, and anemia of blood loss. Partha Luna MD
--- NOTE | 2018-04-16 23:46 | CON ---
DATE: 04/16/2018 UROLOGY CONSULTATION UROLOGY CONSULTATION REQUESTED BY: Partha Luna MD UROLOGY CONSULTATION FILLED BY: Sherri Shell MD REASON FOR CONSULTATION: Hematuria. HISTORY OF PRESENT ILLNESS: The patient is a 62-year-old male with hematuria. The patient is otherwise healthy. The patient has history of elevated PSA. The patient underwent previous prostate ultrasound and biopsy. The patient was admitted to the hospital with hematuria. The patient was admitted for syncope. The patient has history of pulmonary embolism and IVC filter. The patient felt lightheaded at home. He had presyncope. He had some dyspnea. He presented to the emergency room. The patient reports no nausea, vomiting. No fever. The patient has fair-to- good urinary stream and good urinary control. The patient is admitted for evaluation and therapy regarding his presyncope symptoms. He is also being evaluated for possible pulmonary embolus. The patient is also currently admitted for monitoring of the hematuria. PHYSICAL EXAMINATION: GENERAL: The patient is a well-developed, well-nourished male appearing his stated age. ABDOMEN: Soft, nontender, nondistended. No mass or organomegaly. BACK: No CVA tenderness. GENITALIA: Without inflammation. LABORATORY DATA: Reviewed as well. Creatinine was 3, BUN 50. IMPRESSION: Hematuria, 1 week following prostate ultrasound and biopsy. Elevated prostate specific antigen. Chronic kidney disease. Azotemia. History of pulmonary embolus, history of inferior vena cava filter, history of Guillain-[place] syndrome. RECOMMENDATIONS AND PLAN: Monitor the urine output. The patient reports that he is voiding better at present. He reports that the hematuria has improved. Urine culture. The patient has received Rocephin according to review of the chart. Further therapy to follow according to clinical course. Monitor renal function. Prostate biopsy pathology is pending. Thank you for recommending the patient for Urology consultation. Sherri Shell MD cc: MD Felipe Nassar MD
== END 2018-04-15 14:55 | disposition home or self-care (01) | DRG 683 ==
LOC: ED 13:51 → ERH 18:03 → 2RNO 20:42
PROVIDERS: ADMIT Internal Medicine; ATTEND Internal Medicine
DX: N17.9 Acute kidney failure, unspecified (principal); E87.1 Hypo-osmolality and hyponatremia; N13.30 Unspecified hydronephrosis; N40.1 Benign prostatic hyperplasia with lower urinary tract symptoms; R33.8 Other retention of urine; D50.0 Iron deficiency anemia secondary to blood loss (chronic); E83.42 Hypomagnesemia; E83.51 Hypocalcemia; E86.9 Volume depletion, unspecified; E87.5 Hyperkalemia; F10.10 Alcohol abuse, uncomplicated; G62.9 Polyneuropathy, unspecified; I10 Essential (primary) hypertension; I25.10 Atherosclerotic heart disease of native coronary artery without angina pectoris; I70.0 Atherosclerosis of aorta; R79.1 Abnormal coagulation profile; Z86.711 Personal history of pulmonary embolism; Z86.718 Personal history of other venous thrombosis and embolism; Z87.11 Personal history of peptic ulcer disease; Z87.440 Personal history of urinary (tract) infections; Z90.49 Acquired absence of other specified parts of digestive tract